=== PATIENT | female | born 1960 | race Caucasian/White ===

== ENCOUNTER 2025-10-06 17:08 | Emergency (ER) | payer MEDICAID ==
[~2025-10-06] VITALS: Ht 165.1 cm; Wt 109.0 kg
[2025-10-06 17:21] VITALS: O2SAT 97
[2025-10-06] MEDS: ACETAMINOPHEN 325MG TABLET PO ONE (17:52)
[2025-10-06 18:19] LABS: BASOPHILS % 0.8 % (0.0-2.0); EOSINOPHILS % 2.1 % (0.0-5.0); HEMATOCRIT. 38.5 % (36.0-48.0); HEMOGLOBIN. 12.5 g/dL (12.0-16.0); LYMPHOCYTES % 34.7 % (20.0-50.0); MEAN PLATELET VOLUME 9.3 fl (7.4-10.4); MONOCYTES % 7.1 % (2.0-8.0); NEUTROPHILS % 55.3 % (40.0-76.0); PLATELET 252 x1000/uL (130-400); RED BLOOD CELL COUNT 4.30 mill/uL (4.2-5.4); RED CELL DISTRIBUTION WIDTH 14.1 % (11.6-14.6)
[2025-10-06 18:30] LABS: CREATININE 0.6 mg/dL (0.6-1.0)
[2025-10-06 18:31] LABS: UREA NITROGEN BLOOD 14 mg/dL (9-23)
[2025-10-06 18:32] LABS: TROPONIN I HIGH SENSITIVITY 4 ng/L (3.0-34)
[2025-10-06 21:56] VITALS: BP 110/70; PULSE 64; RESP 13; TEMP 36.6; O2SAT 96
[2025-10-06] MEDS ORDERED: IOHEXOL-350 100 ML BOTTLE ONE (23:20)
== END 2025-10-06 21:58 | disposition home or self-care (01) ==
LOC: ER 17:08
DX: R07.89 Other chest pain (principal); M54.2 Cervicalgia; M54.9 Dorsalgia, unspecified; E03.9 Hypothyroidism, unspecified; Z79.890 Hormone replacement therapy; W01.0XXA Fall on same level from slipping, tripping and stumbling without subsequent striking against object, initial encounter; Y93.89 Activity, other specified; Y92.89 Other specified places as the place of occurrence of the external cause; Y99.8 Other external cause status
CPT/HCPCS: 99291; 71275; 80048; 85025; 85379; 84484; 36415; 71045; 70450; 93005; Q9967